=== PATIENT | female | born 1955 | race Caucasian/White ===

== ENCOUNTER 2022-06-16 09:44 | Emergency (ER) | payer BC | END 2022-06-16 12:15 | disposition home or self-care (01) | LOC: JD.ED 09:44 | DX: F41.9 Anxiety disorder, unspecified (principal); I10 Essential (primary) hypertension; F17.210 Nicotine dependence, cigarettes, uncomplicated | CPT/HCPCS: 36415; 80053; 84484; 85025; 85379; 93005; 93010; 99283; 99285 ==